=== PATIENT | female | born 1980 | race Asian ===

== ENCOUNTER → 2017-10-28 15:05 | Outpatient (CLI) | payer OTHER, SELFPAY ==
--- NOTE | 2017-10-28 15:08 | DI.RAD.S_ITS ---
PROCEDURE: XR FOOT LT MIN 3V INDICATIONS: Pain in left foot TECHNIQUE: 3 views of the foot were acquired. COMPARISON: None. FINDINGS: Bones: No fractures or dislocations. No suspicious bony lesions. There are minimal/early degenerative changes present involving the 1st metatarsophalangeal joint. There is a moderate-sized plantar calcaneal spur. Soft tissues: No tibiotalar joint effusion. The overlying soft tissues are within normal limits. IMPRESSION: 1. No acute fracture of the left foot is evident. 2. Mild degenerative changes of the 1st metatarsophalangeal joint. 3. Plantar calcaneal spur. Dictated by: Nilay Page M.D. on 10/28/2017 at 14:53 Approved by: Nilay Page M.D. on 10/28/2017 at 14:54
== END ==
PROVIDERS: Visit Provider Physician Assistant
DX: M79.672 Pain in left foot (principal); M19.072 Primary osteoarthritis, left ankle and foot; M77.32 Calcaneal spur, left foot
CPT/HCPCS: 73630

== ENCOUNTER 2018-04-17 17:55 | Emergency (ER) | payer OTHER, SELFPAY ==
[2018-04-17 19:38] VITALS: BP 107/69; PULSE 73; RESP 14; TEMP 37.6; O2SAT 98
[2018-04-17 20:25] LABS: Bacteria Urine None Seen; WBC Urine None Seen (0-5/HPF)
[2018-04-17 20:34] LABS: Culture Indicated Urine Cult Not Indicated; RBC Urine 1-5/HPF (0-5/HPF)
[2018-04-17 20:52] LABS: Prothrombin Time 11.7 SECONDS (10.1-12.7)
[2018-04-17 20:55] LABS: PTT Partial Thromboplastin Tim 33 SECONDS (26.4-36.2)
[2018-04-17 20:56] LABS: Add Manual Diff / Slide Review NO; Alanine Aminotransferase 19 IU/L (9-52); Albumin 4.5 g/dL (3.5-5.0); Albumin Globulin Ratio 1.3 (1.0-2.8); Alkaline Phosphatase 67 U/L (38-126); Aspartate Aminotransferase 16 IU/L (14-36); Basophils Absolute Auto 0 /uL (0-100); Basophils Percent Auto 0.4 % (0-2); Bilirubin Total 0.6 mg/dL (0.2-1.3); Blood Urea Nitrogen 8 mg/dL (7-17); Calcium 9.7 mg/dL (8.4-10.2); Carbon Dioxide 24 mmol/L (22-32); Chloride 100 mmol/L (98-107); Eosinophils Absolute Auto 200 /uL (0-450); Eosinophils Percent Auto 1.3 % (2-4); Estimated Glomerular Filt Rate > 60.0 mL/min (>60); Globulin 3.6 g/dL (1.7-4.1); Glucose 100 mg/dL (70-100); HEMOLYSIS < 15 (0-50); Hematocrit 37.7 % (36-46); Lipase 58 U/L (23-300); Lymphocytes Absolute Auto 1800 /uL (1100-4500); Lymphocytes Percent Auto 14.8 % (25-40); Mean Corpuscular HGB Conc 31.7 % (30-36); Mean Corpuscular Hemoglobin 21.1 PG (26-34); Mean Corpuscular Volume 66.5 fL (80-100); Monocytes Absolute Auto 800 /uL (0-900); Neutrophils Absolute Auto 9200 /uL (1500-7000); Neutrophils Percent Auto 76.5 % (50-75); Platelet Count 426 X10^3/uL (150-400); Potassium 3.6 mmol/L (3.4-5.1); Red Blood Cell Count 5.68 X10^6/uL (4.0-5.2); Red Cell Distribution Width 15.8 % (11.6-14.8); Sodium 137 mmol/L (137-145); Total Protein 8.1 g/dL (6.3-8.2); White Blood Cell Count 12.1 X10^3/uL (4.5-11.0)
--- NOTE | 2018-04-17 21:03 | DI.CT.S_ITS ---
PROCEDURE: CT ABDOMEN PELVIS W CON INDICATIONS: abd pain, elevated wbc TECHNIQUE: After the administration of intravenous contrast, 5 mm thick sections acquired from the diaphragm to the symphysis. 5 mm coronal and sagittal reformats were acquired. For radiation dose reduction, the following was used: automated exposure control, adjustment of mA and/or kV according to patient size. COMPARISON: [facility], CT, ABDOMEN/PELVIS WITH CONTRAST, 03/12/2016, 22:48. FINDINGS: Image quality: Excellent. ABDOMEN: Lung bases: Lung bases are clear. Heart size is normal. Solid organs: Liver is normal in size and enhancement. Subcentimeter hyper enhancing focus along the anterior left liver lobe, similar compared to prior. Gallbladder is partially decompressed, normal. Biliary system is non dilated. Pancreas enhances normally. Spleen is normal in size and enhancement. No adrenal nodules. Kidneys demonstrate normal size and enhancement, without hydronephrosis. Peritoneum and bowel: Focal inflammatory changes surrounding a short segment of mid right proximal colon. The wall demonstrates diffuse circumferential thickening. A prominent diverticulum is seen in this area. No extraluminal gas visible. The appendix, much more caudal, is normal. Small bowel loops demonstrate normal wall thickness and caliber. No free fluid or air. Nodes and vessels: No retroperitoneal or mesenteric adenopathy by size criteria. Aorta and inferior vena cava are normal in size. Miscellaneous: No ventral hernias. PELVIS: Genitourinary: Bladder wall thickness is normal. Uterus and ovaries appear normal. Miscellaneous: No inguinal hernias or adenopathy. A small amount of free pelvic fluid is present. Bones: No suspicious bony lesions. No vertebral body compression fractures. IMPRESSION: 1. Focal mid ascending colon inflammation suggestive of diverticulitis, less likely an infectious colitis. No evidence of perforation or abscess formation. 2. Small amount of free pelvic fluid is nonspecific and may be related to inflammatory process or recent ovarian cyst rupture. 3. Subcentimeter hyperenhancing left lobe liver lesion, likely benign (flash fill hemangioma, FNH, adenoma) given stability since the previous study Dictated by: Marilu Castellanos M.D. on 04/17/2018 at 21:55 Approved by: Marilu Castellanos M.D. on 04/17/2018 at 22:07
[2018-04-17] MEDS: methylPREDNISolone 125 MG/2 ML VIAL IV (21:12)
[2018-04-17] MEDS: SODIUM CHLORIDE 0.9% 1,000 ML 1000 ML IV (21:12)
[2018-04-17] MEDS: diphenhydrAMINE 50 MG/ML VIAL IV (21:12)
[2018-04-17] MEDS: ONDANSETRON 4 MG/2 ML INJ IV (21:12)
[2018-04-17 22:05] VITALS: BP 98/68; PULSE 67; RESP 16; O2SAT 100
--- NOTE | 2018-04-17 22:29 | ED.ABDPAIN ---
HPI - Abdominal Pain <JENNY Fitzpatrick-BC - Last Filed: 06/14/18 22:26> General Chief Complaint: Abdominal Pain Stated Complaint: tummy aches since yesterday Time Seen by Provider: 04/17/18 20:56 Source: patient and family Mode of arrival: ambulatory Limitations: no limitations History of Present Illness HPI narrative: Patient is a 37-year-old female Current smoker who presents with her with a chief complaint of abdominal pain that started yesterday. She denies any fevers. She states that the pain comes and goes. It is occasionally worse with eating. Does not radiate to chest. It is centered in upper abdomen. She states she does have a history of ovarian cyst, but this does not feel like that. She complains of fatigue, decreased appetite. She states that the pain was always in the center of her abdomen. She has any cough, congestion. She denies any vomiting or diarrhea. She denies any constipation. She denies any chest pain or shortness of breath. she denies any dysuria urgency or frequency. She denies any vaginal complaints. Related Data Previous Rx's Medication Instructions Recorded ciprofloxacin HCl [Cipro] 500 mg PO Q12H #20 tab 04/17/18 metronidazole 500 mg PO TID #30 tab 04/17/18 ondansetron 4 mg PO TID-QID PRN #30 tab 04/17/18 oxycodone-acetaminophen [Percocet] 1 tab PO Q4-6H PRN #14 tab 04/17/18 Allergies Allergy/AdvReac Type Severity Reaction Status Date / Time shellfish derived Allergy Severe itchy, Verified 04/17/18 19:42 hives Review of Systems <VERÓNICA Fitzpatrick - Last Filed: 06/14/18 22:26> Review of Systems GENERAL: see HPI HEENT: Denies sinus pain, ear pain, sore throat, difficulty swallowing, dizziness. RESPIRATORY: Denies dyspnea, cough, wheezing, hemoptysis, sputum. CARDIOVASCULAR: Denies chest pain, palpitations, orthopnea, edema, GASTROINTESTINAL: See HPI : Denies dysuria, frequency, incontinence, hematuria, urinary retention. MUSCULOSKELETAL: denies weakness, joint pain, or bony pain SKIN: Denies rash, skin lesions, or other NEUROLOGIC: Denies weakness, headache, numbness, change in speech, confusion, seizures, incoordination. PSYCHIATRIC: No concerning psychosocial issues. 12 point review of systems is negative except for those stated above PFSH <EDUARDO Fitzpatrick - Last Filed: 06/14/18 22:26> Social History Smoking Status: Current every day smoker Social History Smoking Status: Current every day smoker Exam <EDUARDO Fitzpatrick - Last Filed: 06/14/18 22:26> Initial Vital Signs Initial Vital Signs: Vital Signs Temperature 99.7 F H 04/17/18 19:38 Pulse Rate 73 04/17/18 19:38 Respiratory Rate 14 04/17/18 19:38 Blood Pressure 107/69 04/17/18 19:38 Pulse Oximetry 98 04/17/18 19:38 <Donal Sanchez MD - Last Filed: 06/15/18 01:59> Initial Vital Signs Initial Vital Signs: Vital Signs Temperature 99.7 F H 04/17/18 19:38 Pulse Rate 73 04/17/18 19:38 Respiratory Rate 14 04/17/18 19:38 Blood Pressure 107/69 04/17/18 19:38 Pulse Oximetry 98 04/17/18 19:38 Course <EDUARDO Fitzpatrick - Last Filed: 06/14/18 22:26> Course Narrative: I checked on the patient several times throughout her stay in the emergency department Orders Ordered: Discontinued Medications Ciprofloxacin (Cipro) 500 mg PO NOW ONE Stop: 04/17/18 22:27 Last Admin: 04/17/18 22:45 Dose: 500 mg Diphenhydramine HCl (Benadryl) 50 mg IV NOW ONE Stop: 04/17/18 21:05 Last Admin: 04/17/18 21:12 Dose: 50 mg Sodium Chloride (Normal Saline 0.9%) 1,000 mls @ 1,000 mls/hr IV BOLUS ONE Stop: 04/17/18 21:26 Last Infusion: 04/17/18 22:50 Dose: 0 mls/hr Admin: 04/17/18 21:12 Dose: 1,000 mls/hr Sodium Chloride (Normal Saline 0.9%) 1,000 mls @ 1,000 mls/hr IV BOLUS ONE Stop: 04/17/18 22:02 Last Admin: 04/17/18 23:13 Dose: Not Given Methylprednisolone (Solu-Medrol 125 Mg Vial) 125 mg IV NOW ONE Stop: 04/17/18 21:05 Last Admin: 04/17/18 21:12 Dose: 125 mg Metronidazole (Metronidazole) 500 mg PO NOW ONE Stop: 04/17/18 22:27 Last Admin: 04/17/18 22:45 Dose: 500 mg Ondansetron HCl (Zofran) 4 mg IV NOW ONE Stop: 04/17/18 20:27 Last Admin: 04/17/18 21:12 Dose: 4 mg Ondansetron HCl (Zofran Odt Prepack) 1 bottle MISC SEEINSTR ONE Stop: 04/17/18 22:27 Last Admin: 04/17/18 22:45 Dose: 1 bottle Oxycodone/Acetaminophen (Endocet 5/325 [place]ack) 1 bottle MISC SEEINSTR ONE Stop: 04/17/18 22:27 Last Admin: 04/17/18 22:45 Dose: 1 bottle Vital Signs - 8 hr 04/17/18 19:38 04/17/18 22:05 Temperature 99.7 F H Pulse Rate 73 67 Respiratory Rate 14 16 Blood Pressure 107/69 Blood Pressure [Right Arm] 98/68 Pulse Oximetry 98 100 <Donal Sanchez MD - Last Filed: 06/15/18 01:59> Orders Ordered: Discontinued Medications Ciprofloxacin (Cipro) 500 mg PO NOW ONE Stop: 04/17/18 22:27 Last Admin: 04/17/18 22:45 Dose: 500 mg Diphenhydramine HCl (Benadryl) 50 mg IV NOW ONE Stop: 04/17/18 21:05 Last Admin: 04/17/18 21:12 Dose: 50 mg Sodium Chloride (Normal Saline 0.9%) 1,000 mls @ 1,000 mls/hr IV BOLUS ONE Stop: 04/17/18 21:26 Last Infusion: 04/17/18 22:50 Dose: 0 mls/hr Admin: 04/17/18 21:12 Dose: 1,000 mls/hr Sodium Chloride (Normal Saline 0.9%) 1,000 mls @ 1,000 mls/hr IV BOLUS ONE Stop: 04/17/18 22:02 Last Admin: 04/17/18 23:13 Dose: Not Given Methylprednisolone (Solu-Medrol 125 Mg Vial) 125 mg IV NOW ONE Stop: 04/17/18 21:05 Last Admin: 04/17/18 21:12 Dose: 125 mg Metronidazole (Metronidazole) 500 mg PO NOW ONE Stop: 04/17/18 22:27 Last Admin: 04/17/18 22:45 Dose: 500 mg Ondansetron HCl (Zofran) 4 mg IV NOW ONE Stop: 04/17/18 20:27 Last Admin: 04/17/18 21:12 Dose: 4 mg Ondansetron HCl (Zofran Odt Prepack) 1 bottle MISC SEEINSTR ONE Stop: 04/17/18 22:27 Last Admin: 04/17/18 22:45 Dose: 1 bottle Oxycodone/Acetaminophen (Endocet 5/325 Prepack) 1 bottle MISC SEEINSTR ONE Stop: 04/17/18 22:27 Last Admin: 04/17/18 22:45 Dose: 1 bottle Vital Signs - 8 hr 04/17/18 19:38 04/17/18 22:05 Temperature 99.7 F H Pulse Rate 73 67 Respiratory Rate 14 16 Blood Pressure 107/69 Blood Pressure [Right Arm] 98/68 Pulse Oximetry 98 100 MDM - Abdominal Pain <JENNY Fitzpatrick- - Last Filed: 06/14/18 22:26> Lab Data Result diagrams: 04/17/18 20:35 04/17/18 20:35 Lab Results 04/17/18 04/17/18 04/17/18 Range/Units 20:04 20:35 20:35 WBC 12.1 H (4.5-11.0) X10^3/uL RBC 5.68 H (4.0-5.2) X10^6/uL Hgb 12.0 (12.0-16.0) g/dL Hct 37.7 (36-46) % MCV 66.5 L (80-100) fL MCH 21.1 L (26-34) PG MCHC 31.7 (30-36) % RDW 15.8 H (11.6-14.8) % Plt Count 426 H (150-400) X10^3/uL Neut % (Auto) 76.5 H (50-75) % Lymph % (Auto) 14.8 L (25-40) % [place] % (Auto) 7.0 (3-14) % Eos % (Auto) 1.3 L (2-4) % Baso % (Auto) 0.4 (0-2) % Neut # (Auto) 9200 H (0393-3774) /uL Lymph # (Auto) 1800 (6028-3339) /uL [place] # (Auto) 800 (0-900) /uL Eos # (Auto) 200 (0-450) /uL Baso # (Auto) 0 (0-100) /uL RBC Morphology See below Anisocytosis 2+ H Microcytosis 1+ H PT 11.7 (10.1-12.7) SECONDS INR 1.0 (0.9-1.3) APTT 33 (26.4-36.2) SECONDS Sodium (137-145) mmol/L Potassium (3.4-5.1) mmol/L Chloride (98-107) mmol/L Carbon Dioxide (22-32) mmol/L BUN (7-17) mg/dL Creatinine (0.52-1.04) mg/dL Estimated GFR (>60) mL/min BUN/Creatinine Ratio (6-22) Glucose (70-100) mg/dL Calcium (8.4-10.2) mg/dL Total Bilirubin (0.2-1.3) mg/dL AST (14-36) IU/L ALT (9-52) IU/L Alkaline Phosphatase (38-126) U/L Total Protein (6.3-8.2) g/dL Albumin (3.5-5.0) g/dL Globulin (1.7-4.1) g/dL Albumin/Globulin Ratio (1.0-2.8) Lipase (23-300) U/L Urine RBC 1-5/hpf (0-5/HPF) Urine WBC None seen (0-5/HPF) Urine Bacteria None seen (None) Ur Culture Indicated? Cult not indicated 04/17/18 Range/Units 20:35 WBC (4.5-11.0) X10^3/uL RBC (4.0-5.2) X10^6/uL Hgb (12.0-16.0) g/dL Hct (36-46) % MCV (80-100) fL MCH (26-34) PG MCHC (30-36) % RDW (11.6-14.8) % Plt Count (150-400) X10^3/uL Neut % (Auto) (50-75) % Lymph % (Auto) (25-40) % [place] % (Auto) (3-14) % Eos % (Auto) (2-4) % Baso % (Auto) (0-2) % Neut # (Auto) (1740-7732) /uL Lymph # (Auto) (6314-9871) /uL [place] # (Auto) (0-900) /uL Eos # (Auto) (0-450) /uL Baso # (Auto) (0-100) /uL RBC Morphology Anisocytosis Microcytosis PT (10.1-12.7) SECONDS INR (0.9-1.3) APTT (26.4-36.2) SECONDS Sodium 137 (137-145) mmol/L Potassium 3.6 (3.4-5.1) mmol/L Chloride 100 (98-107) mmol/L Carbon Dioxide 24 (22-32) mmol/L BUN 8 (7-17) mg/dL Creatinine 0.50 L (0.52-1.04) mg/dL Estimated GFR > 60.0 (>60) mL/min BUN/Creatinine Ratio 16.0 (6-22) Glucose 100 (70-100) mg/dL Calcium 9.7 (8.4-10.2) mg/dL Total Bilirubin 0.6 (0.2-1.3) mg/dL AST 16 (14-36) IU/L ALT 19 (9-52) IU/L Alkaline Phosphatase 67 (38-126) U/L Total Protein 8.1 (6.3-8.2) g/dL Albumin 4.5 (3.5-5.0) g/dL Globulin 3.6 (1.7-4.1) g/dL Albumin/Globulin Ratio 1.3 (1.0-2.8) Lipase 58 (23-300) U/L Urine RBC (0-5/HPF) Urine WBC (0-5/HPF) Urine Bacteria (None) Ur Culture Indicated? Point of care testing: Point of Care Testing Test Results Negative Urine Dip Bedside Urine Glucose Negative Bedside Urine Bilirubin - Negative Bedside Urine Ketone +/- 5 Urine Specific [place] 1.030 Bedside Urine Occult Blood + Bedside Urine pH 6.0 Bedside Urine Protein +/- 15 Bedside Urine Nitrite - Negative Bedside Urine Leukocytes - Negative Esterase Imaging Data CT scan - abdomen: Radiologist's impression: [address] [address] [address] Scan Report Signed Patient: Jonathan Mcallister SMR#: [id number] : 1980Acct:[id number] Age/Sex: 37 / FDate of Service: 04/17/18 Loc: ED Accession Number: [id number] Procedure: CT abdomen pelvis w con Ordering Provider: Jany Farley-BC PROCEDURE: CT ABDOMEN PELVIS W CON INDICATIONS: abd pain, elevated wbc TECHNIQUE: After the administration of intravenous contrast, 5 mm thick sections acquired from the diaphragm to the symphysis. 5 mm coronal and sagittal reformats were acquired. For radiation dose reduction, the following was used: automated exposure control, adjustment of mA and/or kV according to patient size. COMPARISON: [facility], CT, ABDOMEN/PELVIS WITH CONTRAST, 03/12/2016, 22:48. FINDINGS: Image quality: Excellent. ABDOMEN: Lung bases: Lung bases are clear. Heart size is normal. Solid organs: Liver is normal in size and enhancement. Subcentimeter hyper enhancing focus along the anterior left liver lobe, similar compared to prior. Gallbladder is partially decompressed, normal. Biliary system is non dilated. Pancreas enhances normally. Spleen is normal in size and enhancement. No adrenal nodules. Kidneys demonstrate normal size and enhancement, without hydronephrosis. Peritoneum and bowel: Focal inflammatory changes surrounding a short segment of mid right proximal colon. The wall demonstrates diffuse circumferential thickening. A prominent diverticulum is seen in this area. No extraluminal gas visible. The appendix, much more caudal, is normal. Small bowel loops demonstrate normal wall thickness and caliber. No free fluid or air. Nodes and vessels: No retroperitoneal or mesenteric adenopathy by size criteria. Aorta and inferior vena cava are normal in size. Miscellaneous: No ventral hernias. PELVIS: Genitourinary: Bladder wall thickness is normal. Uterus and ovaries appear normal. Miscellaneous: No inguinal hernias or adenopathy. A small amount of free pelvic fluid is present. Bones: No suspicious bony lesions. No vertebral body compression fractures. IMPRESSION: 1. Focal mid ascending colon inflammation suggestive of diverticulitis, less likely an infectious colitis. No evidence of perforation or abscess formation. 2. Small amount of free pelvic fluid is nonspecific and may be related to inflammatory process or recent ovarian cyst rupture. 3. Subcentimeter hyperenhancing left lobe liver lesion, likely benign (flash fill hemangioma, FNH, adenoma) given stability since the previous study Dictated by: Marilu Castellanos M.D. on 04/17/2018 at 21:55 Approved by: Marilu Castellanos M.D. on 04/17/2018 at 22:07 [facility] Narrative Medical decision making narrative: The patient is a 37-year-old female presents with low-grade fevers, abdominal pain. Given her tenderness on exam elevated temperature, elevated WBC I obtained a CT scan. Diverticulitis was noted on CT scan. The 7 initiating treatment with Flagyl and Cipro as per up-to-date guidelines. I am giving her Percocet for pain, Zofran for nausea, discussed at length clear liquid diet, pushing fluids, eating simple foods. Patient has been of no questions or concerns. I encouraged her to follow up with primary care provider in a few days. Patient states understanding of ED return precautions. <Donal Sanchez MD - Last Filed: 06/15/18 01:59> Lab Data Lab Results 04/17/18 04/17/18 04/17/18 Range/Units 20:04 20:35 20:35 WBC 12.1 H (4.5-11.0) X10^3/uL RBC 5.68 H (4.0-5.2) X10^6/uL Hgb 12.0 (12.0-16.0) g/dL Hct 37.7 (36-46) % MCV 66.5 L (80-100) fL MCH 21.1 L (26-34) PG MCHC 31.7 (30-36) % RDW 15.8 H (11.6-14.8) % Plt Count 426 H (150-400) X10^3/uL Neut % (Auto) 76.5 H (50-75) % Lymph % (Auto) 14.8 L (25-40) % [place] % (Auto) 7.0 (3-14) % Eos % (Auto) 1.3 L (2-4) % Baso % (Auto) 0.4 (0-2) % Neut # (Auto) 9200 H (9345-2097) /uL Lymph # (Auto) 1800 (1806-3371) /uL [place] # (Auto) 800 (0-900) /uL Eos # (Auto) 200 (0-450) /uL Baso # (Auto) 0 (0-100) /uL RBC Morphology See below Anisocytosis 2+ H Microcytosis 1+ H PT 11.7 (10.1-12.7) SECONDS INR 1.0 (0.9-1.3) APTT 33 (26.4-36.2) SECONDS Sodium (137-145) mmol/L Potassium (3.4-5.1) mmol/L Chloride (98-107) mmol/L Carbon Dioxide (22-32) mmol/L BUN (7-17) mg/dL Creatinine (0.52-1.04) mg/dL Estimated GFR (>60) mL/min BUN/Creatinine Ratio (6-22) Glucose (70-100) mg/dL Calcium (8.4-10.2) mg/dL Total Bilirubin (0.2-1.3) mg/dL AST (14-36) IU/L ALT (9-52) IU/L Alkaline Phosphatase (38-126) U/L Total Protein (6.3-8.2) g/dL Albumin (3.5-5.0) g/dL Globulin (1.7-4.1) g/dL Albumin/Globulin Ratio (1.0-2.8) Lipase (23-300) U/L Urine RBC 1-5/hpf (0-5/HPF) Urine WBC None seen (0-5/HPF) Urine Bacteria None seen (None) Ur Culture Indicated? Cult not indicated 04/17/18 Range/Units 20:35 WBC (4.5-11.0) X10^3/uL RBC (4.0-5.2) X10^6/uL Hgb (12.0-16.0) g/dL Hct (36-46) % MCV (80-100) fL MCH (26-34) PG MCHC (30-36) % RDW (11.6-14.8) % Plt Count (150-400) X10^3/uL Neut % (Auto) (50-75) % Lymph % (Auto) (25-40) % [place] % (Auto) (3-14) % Eos % (Auto) (2-4) % Baso % (Auto) (0-2) % Neut # (Auto) (9924-9309) /uL Lymph # (Auto) (4193-4210) /uL [place] # (Auto) (0-900) /uL Eos # (Auto) (0-450) /uL Baso # (Auto) (0-100) /uL RBC Morphology Anisocytosis Microcytosis PT (10.1-12.7) SECONDS INR (0.9-1.3) APTT (26.4-36.2) SECONDS Sodium 137 (137-145) mmol/L Potassium 3.6 (3.4-5.1) mmol/L Chloride 100 (98-107) mmol/L Carbon Dioxide 24 (22-32) mmol/L BUN 8 (7-17) mg/dL Creatinine 0.50 L (0.52-1.04) mg/dL Estimated GFR > 60.0 (>60) mL/min BUN/Creatinine Ratio 16.0 (6-22) Glucose 100 (70-100) mg/dL Calcium 9.7 (8.4-10.2) mg/dL Total Bilirubin 0.6 (0.2-1.3) mg/dL AST 16 (14-36) IU/L ALT 19 (9-52) IU/L Alkaline Phosphatase 67 (38-126) U/L Total Protein 8.1 (6.3-8.2) g/dL Albumin 4.5 (3.5-5.0) g/dL Globulin 3.6 (1.7-4.1) g/dL Albumin/Globulin Ratio 1.3 (1.0-2.8) Lipase 58 (23-300) U/L Urine RBC (0-5/HPF) Urine WBC (0-5/HPF) Urine Bacteria (None) Ur Culture Indicated? Point of care testing: Point of Care Testing Test Results Negative Urine Dip Bedside Urine Glucose Negative Bedside Urine Bilirubin - Negative Bedside Urine Ketone +/- 5 Urine Specific [place] 1.030 Bedside Urine Occult Blood + Bedside Urine pH 6.0 Bedside Urine Protein +/- 15 Bedside Urine Nitrite - Negative Bedside Urine Leukocytes - Negative Esterase Discharge Plan Departure Patient Disposition: Home Clinical Impression: Diverticulitis Discharge Date/Time: 04/17/18 23:10 Interventions: ED Discharge Assessment Last Done: 04/17/18 23:13 Instructions: DI for Diverticulitis Activity Restrictions/Additional Instructions: I am starting you on 2 different antibiotics for your diverticulitis infection. I am also giving him pain medication and nausea medication. The aware that the pain medication can be sedating. I can also be constipating. Please push fluids and initially try clear liquid diet. please follow the dietary guidelines that we have given you. Come back to the emergency department if needed including inability to keep down her medications. Please follow up with her primary care provider in a few days for recheck. Prescriptions: New ciprofloxacin HCl [Cipro] 500 mg tablet 500 mg PO Q12H Qty: 20 RF: 0 metronidazole 500 mg tablet 500 mg PO TID Qty: 30 RF: 0 ondansetron 4 mg tablet,disintegrating 4 mg PO TID-QID PRN (Reason: nausea and vomiting) Qty: 30 RF: 0 oxycodone-acetaminophen [Percocet] 5-325 mg tablet 1 tab PO Q4-6H PRN (Reason: pain) Qty: 14 RF: 0 Referrals: Charlie Hills MD [Non-Staff] - <Donal Sanchez MD - Last Filed: 06/15/18 01:59> Sign Out Provider Sign Out Attestation: I have discussed the patient's evaluation, assessment and treatment plan with the primary provider. Addendum has been added documenting the exam. I agree with the assessment and treatment plan.
[2018-04-17 22:45] VITALS: BP 89/61; PULSE 68; RESP 16; O2SAT 98
[2018-04-17] MEDS: ONDANSETRON 4 MG ODT PREPACK 1 BOTTLE MISC (22:45)
[2018-04-17] MEDS: OXYCODONE/APAP 5/325 PREPACK 1 BOTTLE MISC (22:45)
[2018-04-17] MEDS: CIPROFLOXACIN 500 MG TABLET PO (22:45)
[2018-04-17] MEDS: metroNIDAZOLE 250 MG TABLET 500 MG PO (22:45)
[2018-04-17 23:13] VITALS: BP 103/67; PULSE 61
[2018-04-18 01:27] LABS: Anisocytosis 2+; Microcytosis 1+
== END 2018-04-17 23:10 | disposition home or self-care (01) ==
PROVIDERS: Emergency Medicine; Emergency Provider Nurse Practitioner Family
DX: K57.92 Diverticulitis of intestine, part unspecified, without perforation or abscess without bleeding (principal)
CPT/HCPCS: 36591; 74177; 80053; 81003; 81015; 81025; 83690; 85025; 85610; 85730; 96361; 96374; 96375; 99283; 99285; J1200; J2405; J2930; Q9967

== ENCOUNTER 2023-03-05 10:25 | Emergency (ER) | payer OTHER, SELFPAY ==
[2023-03-05 10:28] VITALS: BP 141/65; PULSE 79; RESP 15; TEMP 36.4; O2SAT 97; BMI 29.2
--- NOTE | 2023-03-05 10:45 | ED.GENADULT ---
HPI - General Adult General Chief complaint: Abdominal Pain Stated complaint: side hurting constipation Time Seen by Provider: 03/05/23 10:41 Source: patient Mode of arrival: Ambulatory History of Present Illness HPI narrative: Patient is a 42-year-old male. History of diverticulitis. She states that several days ago she started to get UTI like symptoms. She did take a home azo. She went to an outside walk-in clinic. Because her urine was discolored they were unable to do any urine samples. She was presumptively started on Macrobid. She has been taking this. She feels like her urine symptoms have actually improved however she continues to have left-sided abdominal and flank pain. No fevers. No vomiting. She did have a very hard bowel movement this morning. No blood in it. She states that the left-sided flank pain is starting to feel like her prior history of diverticulitis. Related Data Previous Rx's Medication Instructions Recorded ciprofloxacin HCl 500 mg tablet 500 mg PO Q12H #20 tabs 04/17/18 (Cipro) metronidazole 500 mg tablet 500 mg PO TID #30 tabs 04/17/18 ondansetron 4 mg disintegrating 4 mg PO TID-QID PRN nausea and 04/17/18 tablet vomiting #30 tabs oxycodone-acetaminophen 5 mg-325 1 tab PO Q4-6H PRN pain #14 tabs 04/17/18 mg tablet (Percocet) Allergies Allergy/AdvReac Type Severity Reaction Status Date / Time shellfish derived Allergy Severe itchy, Verified 03/05/23 10:28 hives Review of Systems Constitutional Constitutional: Reports system reviewed and no additional complaints, except as documented Gastrointestinal Gastrointestinal: Reports system reviewed and no additional complaints, except as documented Genitourinary Genitourinary: Reports system reviewed and no additional complaints, except as documented Musculoskeletal Musculoskeletal: Reports system reviewed and no additional complaints, except as documented Integumentary/Breasts Skin/Breast: Reports system reviewed and no additional complaints, except as documented Hematologic/Lymphatic On Anticoagulants: No Patient History Social History Smoking Status: Former smoker Smoking Status: Former smoker alcohol intake frequency: holidays/special occasions only Substance Use Type: does not use Exam Initial Vital Signs Initial Vital Signs: Vital Signs Temperature 97.6 F 03/05/23 10:28 Pulse Rate 79 03/05/23 10:28 Respiratory Rate 15 03/05/23 10:28 Blood Pressure 141/65 H 03/05/23 10:28 Pulse Oximetry 97 03/05/23 10:28 Oxygen Delivery Method Room Air 03/05/23 10:28 Const General: cooperative, comfortable and No ill appearing HENMT Head: normal to inspection Resp Effort & Inspection: normal respiratory effort GI Inspection: normal to inspection and non-distended Palpation: tender (Mild tenderness left-sided flank/abdomen) Back/Spine/Pelvis Back: No CVA tenderness Other: Left-sided lower lumbar discomfort Neuro General: patient alert, patient awake and moves all extremities Extrem General: normal to inspection and capillary refill normal Course Orders Ordered: ED Orders 03/05/23 10:44 CT abdomen pelvis w con Stat 03/05/23 10:46 Urinalysis and Microscopic Stat 03/05/23 10:53 Complete Blood Count AUTO DIFF Stat Comprehensive Metabolic Panel Stat Lipase Stat Ondansetron HCl (Ondansetron 4 Mg/2 Ml Inj) 4 mg IV NOW PRN PRN Reason: Nausea And Vomiting Last Admin: 03/05/23 10:56 Dose: 4 mg Documented By: MARCIA Discontinued Medications Diphenhydramine HCl (Diphenhydramine 50 Mg/Ml Vial) 25 mg IV NOW ONE Stop: 03/05/23 10:45 Last Admin: 03/05/23 10:56 Dose: 25 mg Documented By: MARCIA Methylprednisolone (Methylprednisolone 125 Mg/2 Ml Vial) 125 mg IV NOW ONE Stop: 03/05/23 10:45 Last Admin: 03/05/23 10:55 Dose: 125 mg Documented By: MARCIA Vital Signs Vital signs: Vital Signs - 8 hr 03/05/23 10:28 03/05/23 12:22 Temperature 97.6 F Pulse Rate 79 68 Respiratory Rate 15 16 Blood Pressure 141/65 H 105/63 Pulse Oximetry 97 96 Oxygen Delivery Method Room Air Room Air Medical Decision Making Lab Data Lab results reviewed: Yes I reviewed the patient's lab results. 03/05/23 10:53 03/05/23 10:53 Labs: Lab Results 03/05/23 03/05/23 Range/Units 10:46 10:53 WBC 7.5 (4.5-11.0) X10^3/uL RBC 5.93 H (4.0-5.2) X10^6/uL Hgb 12.4 (12.0-16.0) g/dL Hct 38.6 (36-46) % MCV 65.2 L (80-100) fL MCH 21.0 L (26-34) PG MCHC 32.2 (30-36) % RDW 15.4 H (11.6-14.8) % Plt Count 418 H (150-400) X10^3/uL Neut % (Auto) 62.5 (50-75) % Lymph % (Auto) 27.8 (25-40) % Mercer % (Auto) 6.6 (3-14) % Eos % (Auto) 2.3 (2-4) % Baso % (Auto) 0.8 (0-2) % Neut # (Auto) 4700 (1274-6642) /uL Lymph # (Auto) 2100 (5704-1843) /uL Mercer # (Auto) 500 (0-900) /uL Eos # (Auto) 200 (0-450) /uL Baso # (Auto) 100 (0-100) /uL Sodium 136 L (137-145) mmol/L Potassium 3.8 (3.4-5.1) mmol/L Chloride 99 (98-107) mmol/L Carbon Dioxide 25 (22-32) mmol/L BUN 8 (7-17) mg/dL Creatinine 0.39 L (0.52-1.04) mg/dL Estimated GFR > 60 (>60) mL/min BUN/Creatinine Ratio 20.5 (6-22) Glucose 201 H (70-100) mg/dL Calcium 9.5 (8.4-10.2) mg/dL Total Bilirubin 0.4 (0.2-1.3) mg/dL AST TNP ALT 33 (<35) IU/L Alkaline Phosphatase 84 (38-126) U/L Total Protein 8.2 (6.3-8.2) g/dL Albumin 4.3 (3.5-5.0) g/dL Globulin 3.9 (1.7-4.1) g/dL Albumin/Globulin Ratio 1.1 (1.0-2.8) Lipase 84 (23-300) U/L Urine Color Yellow Urine Appearance Clear Urine pH 5.5 (4.5-8.0) Ur Specific [place] 1.010 (1.000-1.035) Urine Protein Negative (Negative) Urine Glucose (UA) 1+ H (Negative) g/dL Urine Ketones 1+ H (NEGATIVE) Urine Occult Blood Negative (Negative) Urine Nitrate Negative (Negative) Urine Bilirubin Negative (NEGATIVE) Urine Urobilinogen 0.2 (0.2) E.U./dL Ur Leukocyte Esterase Negative (NEGATIVE) Urine RBC None seen (0-5/HPF) Urine WBC 1-5/hpf (0-5/HPF) Ur Squamous Epith Cells 10-30 /hpf H (0-5/HPF) Urine Bacteria Moderate (10-30) H (None) Ur Culture Indicated? Cult not indicated Point of Care Testing Test Results Negative Point of care testing: Point of Care Testing Test Results Negative Imaging Data CT scan - abdomen/pelvis: Radiologist's Impression: PROCEDURE: CT ABDOMEN PELVIS W CON INDICATIONS: Left-sided flank pain TECHNIQUE: After the administration of intravenous contrast, axial sections acquired from the lung bases to the pubic symphysis. Coronal and sagittal reformats were performed. For radiation dose reduction, the following was used: automated exposure control, adjustment of mA and/or kV according to patient size. COMPARISON: [facility], CT, CT ABDOMEN PELVIS W CON, 04/17/2018, 21:22. FINDINGS: Image quality: Diagnostic. Lower Chest: No significant findings. ABDOMEN: Liver: Prominent in size with diffusely decreased density. No focal mass. Gallbladder: No radiopaque gallstones or wall thickening. Biliary ducts: No biliary dilation. Pancreas: No ductal dilation. Spleen: Size is within normal limits. Adrenal Glands: No adrenal nodules. Kidneys and Ureters: No hydronephrosis. No solid mass. No complex renal cystic lesion which requires follow up. Stomach and Bowel: Normal colonic caliber, without significant wall thickening. Normal appendix. Peritoneum: Small amount of free fluid in the pelvis, within physiological limits in a menstruating female. No free air. Ventral Wall: No hernia. Abdominal Nodes: No retroperitoneal or mesenteric adenopathy by size criteria. Vessels: Aorta and inferior vena cava are normal in size. PELVIS: Pelvic Organs: Unremarkable. Bladder: Unremarkable. Pelvic Nodes: No enlarged lymph nodes. Miscellaneous: No inguinal hernias are seen. Bones: No aggressive osseous abnormality. IMPRESSION: 1. No acute process. 2. Normal appendix. 3. Small amount of free fluid in the pelvis, within physiological limits in a menstruating female. 4. Hepatic steatosis. MDM Narrative Medical decision making narrative: CT scan today is relatively unremarkable. There was no signs of any ureteral stone. No inflammation around the kidney that would be concerning for pyelo. She actually does not have CVA tenderness. No signs of diverticulitis. No signs of bowel obstruction. She is currently being treated for UTI. There was no indication to change her current antibiotic regimen. No indication for surgical consultation. No indication for admission to the hospital. Will discharge patient home with return precautions. She expressed understanding and agreement with plan. Discharge Plan Departure Patient Disposition: Home Clinical Impression: UTI (urinary tract infection), Abdominal pain Instructions: DI for Urinary Tract Infection (UTI), DI for Abdominal Pain-Adult Activity Restrictions/Additional Instructions: Recommend that you continue to take all of your medications as directed. Contact your primary doctor for follow-up. Return to the emergency department for new symptoms. Prescriptions: No Action ciprofloxacin HCl [Cipro] 500 mg tablet 500 mg PO Q12H Qty: 20 0RF metronidazole 500 mg tablet 500 mg PO TID Qty: 30 0RF ondansetron 4 mg tablet,disintegrating 4 mg PO TID-QID PRN (Reason: nausea and vomiting) Qty: 30 0RF oxycodone-acetaminophen [Percocet] 5-325 mg tablet 1 tab PO Q4-6H PRN (Reason: pain) Qty: 14 0RF Referrals: Miscellaneous,Doctor, MD [Primary Care Provider] - Stand Alone Forms: Patient Portal/API
[2023-03-05 10:49] LABS: Appearance Urine UA CLEAR; Bilirubin Urine UA NEGATIVE (NEGATIVE); Color Urine UA YELLOW; Glucose Urine UA 1+ g/dL (Negative); Ketones Urine UA 1+ (NEGATIVE); Leukocyte Esterase Urine UA NEGATIVE (NEGATIVE); Nitrite Urine UA NEGATIVE (Negative); Occult Blood Urine UA NEGATIVE (Negative); Protein Urine UA NEGATIVE (Negative); Urobilinogen Urine UA 0.2 E.U./dL (0.2)
[2023-03-05 10:54] LABS: pH Urine UA 5.5 (4.5-8.0)
[2023-03-05] MEDS: methylPREDNISolone 125 MG/2 ML VIAL IV (10:55)
[2023-03-05] MEDS: ONDANSETRON 4 MG/2 ML INJ IV (10:56)
[2023-03-05] MEDS: diphenhydrAMINE 50 MG/ML VIAL 25 MG IV (10:56)
[2023-03-05 11:10] LABS: Bacteria Urine Moderate (10-30); Culture Indicated Urine Cult Not Indicated; RBC Urine None Seen (0-5/HPF); Squamous Epithelial Cell Urine 10-30 /HPF (0-5/HPF); WBC Urine 1-5/HPF (0-5/HPF)
[2023-03-05 11:14] LABS: Basophils Absolute Auto 100 /uL (0-100); Basophils Percent Auto 0.8 % (0-2); Eosinophils Absolute Auto 200 /uL (0-450); Eosinophils Percent Auto 2.3 % (2-4); Hematocrit 38.6 % (36-46); Hemoglobin 12.4 g/dL (12.0-16.0); Lymphocytes Absolute Auto 2100 /uL (1100-4500); Lymphocytes Percent Auto 27.8 % (25-40); Mean Corpuscular HGB Conc 32.2 % (30-36); Mean Corpuscular Volume 65.2 fL (80-100); Monocytes Absolute Auto 500 /uL (0-900); Monocytes Percent Auto 6.6 % (3-14); Neutrophils Absolute Auto 4700 /uL (1500-7000); Neutrophils Percent Auto 62.5 % (50-75); Platelet Count 418 X10^3/uL (150-400); Red Blood Cell Count 5.93 X10^6/uL (4.0-5.2); Red Cell Distribution Width 15.4 % (11.6-14.8); White Blood Cell Count 7.5 X10^3/uL (4.5-11.0)
[2023-03-05 11:15] LABS: Add Manual Diff / Slide Review SLIDE REVIEW
[2023-03-05 11:31] LABS: Alanine Aminotransferase 33 IU/L (<35); Albumin 4.3 g/dL (3.5-5.0); Albumin Globulin Ratio 1.1 (1.0-2.8); Alkaline Phosphatase 84 U/L (38-126); BUN Creatinine Ratio 20.5 (6-22); Bilirubin Total 0.4 mg/dL (0.2-1.3); Blood Urea Nitrogen 8 mg/dL (7-17); Calcium 9.5 mg/dL (8.4-10.2); Carbon Dioxide 25 mmol/L (22-32); Chloride 99 mmol/L (98-107); Estimated Glomerular Filt Rate > 60 mL/min (>60); Globulin 3.9 g/dL (1.7-4.1); Glucose 201 mg/dL (70-100); HEMOLYSIS < 15 (0-50); Lipase 84 U/L (23-300); Potassium 3.8 mmol/L (3.4-5.1); Sodium 136 mmol/L (137-145); Total Protein 8.2 g/dL (6.3-8.2)
[2023-03-05 12:22] VITALS: BP 105/63; PULSE 68; RESP 16; O2SAT 96
[2023-03-05 15:16] LABS: Anisocytosis 1+; Microcytosis 1+
[2023-03-06 14:58] LABS: Aspartate Aminotransferase 35 IU/L (14-36)
== END 2023-03-05 12:48 | disposition home or self-care (01) ==
PROVIDERS: Emergency Provider Emergency Medicine
DX: N39.0 Urinary tract infection, site not specified (principal); R10.9 Unspecified abdominal pain
CPT/HCPCS: 36415; 74177; 80053; 81001; 81025; 83690; 85025; 96374; 96375; 99284; J1200; J2405; J2930; Q9967

== ENCOUNTER 2023-11-23 09:47 | Emergency (ER) | payer OTHER, SELFPAY ==
[2023-11-23 09:51] VITALS: BP 149/87; PULSE 701; RESP 18; TEMP 36.3; O2SAT 98; BMI 29.6
--- NOTE | 2023-11-23 11:24 | ED.EAR ---
HPI - Ear Problem <Braxton Hobbs PA-C - Last Filed: 11/23/23 12:32> General Chief complaint: Ear Stated complaint: Left Ear infection Time Seen by Provider: 11/23/23 11:11 Source: patient Mode of arrival: Ambulatory History of Present Illness HPI Narrative: 43-year-old female presents to the ED with 7 days of left-sided headache and ear pain. Patient states her symptoms started 7 days ago as a left-sided migraine, the next day progressed to left-sided ear pain which she describes as behind her left ear, 2-3 inches posterior to the mastoid. Patient states that she was seen at the [facility] walk-in clinic, prescribed Augmentin and antibiotic eardrops for a left-sided ear infection. Patient states that her symptoms have not improved despite taking her medications as prescribed. Today, patient endorses 7/10 left-sided neck pain. Patient states that it is sometimes sharp, and comes and goes. Patient states that she does feel somewhat stiff when she turns her neck to the left. No trauma. Patient states that her headache has been intermittent over this last week. Patient does not report a headache in the ED. patient does endorse a history of migraines. Patient states that her headaches in the last week are similar to the headaches that she has historically experienced. Patient reports subjective intermittent fever 4 days ago and yesterday. No rhinorrhea, cough, sore throat, nausea, vomiting. No dysphagia, odynophagia. No hearing deficits. No numbness, tingling, weakness, dizziness. Patient was also screened for COVID at the walk-in clinic and was negative. Related Data Previous Rx's Medication Instructions Recorded ciprofloxacin HCl 500 mg tablet 500 mg PO Q12H #20 tabs 04/17/18 (Cipro) metronidazole 500 mg tablet 500 mg PO TID #30 tabs 04/17/18 ondansetron 4 mg disintegrating 4 mg PO TID-QID PRN nausea and 04/17/18 tablet vomiting #30 tabs oxycodone-acetaminophen 5 mg-325 1 tab PO Q4-6H PRN pain #14 tabs 04/17/18 mg tablet (Percocet) cyclobenzaprine 10 mg tablet 10 mg PO TID PRN muscle spasm 3 11/23/23 days #10 tabs Allergies Allergy/AdvReac Type Severity Reaction Status Date / Time shellfish derived Allergy Severe itchy, Verified 11/23/23 09:55 hives Review of Systems <Braxton Hobbs PA-C - Last Filed: 11/23/23 12:32> Constitutional Constitutional: Denies chills, Denies fatigue, Denies fever(s), Denies frequent falls, Denies lethargy and Denies weakness Eyes Eyes: Denies change in vision, Denies eye discharge, Denies irritation and Denies loss of vision ENT Ears, Nose, Mouth, and Throat: Denies change in voice, Denies dizziness, Denies neck pain, Denies sore throat and Denies throat swelling Cardiovascular Cardiovascular: Denies chest pain, Denies irregular heart rhythm, Denies lightheadedness, Denies palpitations, Denies dyspnea, Denies dyspnea on exertion and Denies orthopnea Respiratory Respiratory: Denies cough, Denies dyspnea, Denies dyspnea on exertion and Denies wheezing Gastrointestinal Gastrointestinal: Denies abdominal pain, Denies change in bowel habits, Denies diarrhea, Denies nausea and Denies vomiting Musculoskeletal Musculoskeletal: Denies neck pain and Denies numbness Integumentary/Breasts Skin/Breast: Denies pruritus, Denies erythema, Denies rash and Denies wounds Neurologic Neurologic: Denies behavioral changes, Denies confusion, Denies dizziness, Denies frequent falls, Denies loss of vision, Denies numbness and Denies weakness Psychiatric Psychiatric: Denies anxiety, Denies behavioral changes, Denies confusion, Denies depression, Denies homicidal ideation and Denies suicidal ideation Endocrine Endocrine: Denies fatigue, Denies flushing and Denies palpitations Hematologic/Lymphatic Hematologic/Lymphatic: Denies easy bruising Allergic/Immunologic Allergic/Immunologic: Denies urticaria, Denies throat swelling and Denies wheezing Patient History <Braxton Hobbs PA-C - Last Filed: 11/23/23 12:32> Social History Smoking Status: Former smoker Smoking Status: Former smoker alcohol intake frequency: holidays/special occasions only Substance Use Type: does not use Exam <Braxton Hobbs PA-C - Last Filed: 11/23/23 12:32> Narrative Exam Narrative: Const General:?cooperative, healthy appearing and comfortable HENWY Head:?normal to inspection Ears:?hearing grossly normal bilaterally; tympani normal bilaterally; ear canals normal bilaterally; no mastoid tenderness. Nose:?external nose normal Face and sinus:?normal facial exam and sinuses nontender Mouth:?oral mucosae normal Throat:?posterior oropharynx normal Eyes General:?appearance normal, both eyes and all related structures Neck Neck:?normal visual inspection and no lymphadenopathy noted; there is some tenderness to palpation posterior to the mastoid on the left side and very localized. No swelling, masses palpated. Resp Effort & Inspection:?normal respiratory effort Auscultation:?clear to auscultation bilaterally Cardio Rate:?regular rate Rhythm:?regular rhythm Neuro General:?patient alert, patient awake and patient oriented x3 Initial Vital Signs Initial Vital Signs: Vital Signs Temperature 97.3 F L 11/23/23 09:51 Pulse Rate 701 H 11/23/23 09:51 Respiratory Rate 18 11/23/23 09:51 Blood Pressure 149/87 H 11/23/23 09:51 Pulse Oximetry 98 11/23/23 09:51 Oxygen Delivery Method Room Air 11/23/23 09:51 <Delbert Fofana DO - Last Filed: 11/24/23 10:31> Initial Vital Signs Initial Vital Signs: Vital Signs Temperature 97.3 F L 11/23/23 09:51 Pulse Rate 701 H 11/23/23 09:51 Respiratory Rate 18 11/23/23 09:51 Blood Pressure 149/87 H 11/23/23 09:51 Pulse Oximetry 98 11/23/23 09:51 Oxygen Delivery Method Room Air 11/23/23 09:51 Course <Braxton Hobbs PA-C - Last Filed: 11/23/23 12:32> Orders Ordered: Discontinued Medications Acetaminophen (Acetaminophen 325 Mg Tablet) 975 mg PO NOW ONE Stop: 11/23/23 11:34 Last Admin: 11/23/23 11:40 Dose: 975 mg Documented By: MARIBEL Cyclobenzaprine HCl (Cyclobenzaprine 10 Mg Tablet) 10 mg PO NOW ONE Stop: 11/23/23 11:34 Last Admin: 11/23/23 11:40 Dose: 10 mg Documented By: MARIBEL Ketorolac Tromethamine (Ketorolac 30 Mg/Ml Vial) 30 mg IM NOW ONE Stop: 11/23/23 11:34 Last Admin: 11/23/23 11:40 Dose: 30 mg Documented By: MARIBEL Vital Signs Vital signs: Vital Signs - 8 hr 11/23/23 09:51 Temperature 97.3 F L Pulse Rate 701 H Respiratory Rate 18 Blood Pressure 149/87 H Pulse Oximetry 98 Oxygen Delivery Method Room Air <Delbert Fofana DO - Last Filed: 11/24/23 10:31> Orders Ordered: Discontinued Medications Acetaminophen (Acetaminophen 325 Mg Tablet) 975 mg PO NOW ONE Stop: 11/23/23 11:34 Last Admin: 11/23/23 11:40 Dose: 975 mg Documented By: MARIBEL Cyclobenzaprine HCl (Cyclobenzaprine 10 Mg Tablet) 10 mg PO NOW ONE Stop: 11/23/23 11:34 Last Admin: 11/23/23 11:40 Dose: 10 mg Documented By: MARIBEL Ketorolac Tromethamine (Ketorolac 30 Mg/Ml Vial) 30 mg IM NOW ONE Stop: 11/23/23 11:34 Last Admin: 11/23/23 11:40 Dose: 30 mg Documented By: MARIBEL Vital Signs Vital signs: Vital Signs - 8 hr 11/23/23 09:51 Temperature 97.3 F L Pulse Rate 701 H Respiratory Rate 18 Blood Pressure 149/87 H Pulse Oximetry 98 Oxygen Delivery Method Room Air Medical Decision Making <Braxton Hobbs PA-C - Last Filed: 11/23/23 12:32> [facility] Narrative Medical decision making narrative: 43-year-old female presents to the ED with 7 days of left-sided headache and ear pain. Physical exam is reassuring for bilaterally in normal tympani and external ear canals. No mastoid tenderness. Patient is tender 2-3 inches posterior to the mastoid, no erythema, masses or lymphadenopathy, and is most consistent with a musculoskeletal etiology versus referred pain from migraines. Will if patient ketorolac, Tylenol, Flexeril and reassess. Patient's symptoms improved with medications. Prescribed Flexeril. Also recommend Tylenol, ibuprofen. Recommend follow-up with PCP in 3-5 days. ED return precautions discussed with patient. Patient verbalized understanding. Medical records reviewed: Yes <Delbert Fofana DO - Last Filed: 11/24/23 10:31> [facility] Narrative Medical decision making narrative: 43-year-old female presents to the ED with 7 days of left-sided headache and ear pain. Physical exam is reassuring for bilaterally in normal tympani and external ear canals. No mastoid tenderness. Patient is tender 2-3 inches posterior to the mastoid, no erythema, masses or lymphadenopathy, and is most consistent with a musculoskeletal etiology versus referred pain from migraines. Will if patient ketorolac, Tylenol, Flexeril and reassess. Patient's symptoms improved with medications. Prescribed Flexeril. Also recommend Tylenol, ibuprofen. Recommend follow-up with PCP in 3-5 days. ED return precautions discussed with patient. Patient verbalized understanding. Medical records reviewed: Yes Dr. Fofana: I was immediately available in the department for consultation. Documentation has been reviewed. I agree with assessment and plan. Discharge Plan Departure Patient Disposition: Home Clinical Impression: Neck pain Instructions: DI for Neck Pain Activity Restrictions/Additional Instructions: You were evaluated in the ED today for left-sided neck pain. You were given an injection of Toradol, a dose of Tylenol and a muscle relaxant. Your symptoms improved with the medications. You have been prescribed a muscle relaxant for continued use. Please be aware that this medication can make you sleepy, therefore to not use when driving or operating machinery. You may also take 600 mg of ibuprofen every 8 hours with food. You may also use 1000 mg of Tylenol every 8 hours. Please follow-up with your PCP in 3-5 days. Return to the ED if you have worsening symptoms, numbness, tingling, weakness. Prescriptions: New cyclobenzaprine 10 mg tablet 10 mg PO TID PRN (Reason: muscle spasm) 3 Days Qty: 10 0RF No Action ciprofloxacin HCl [Cipro] 500 mg tablet 500 mg PO Q12H Qty: 20 0RF metronidazole 500 mg tablet 500 mg PO TID Qty: 30 0RF ondansetron 4 mg tablet,disintegrating 4 mg PO TID-QID PRN (Reason: nausea and vomiting) Qty: 30 0RF oxycodone-acetaminophen [Percocet] 5-325 mg tablet 1 tab PO Q4-6H PRN (Reason: pain) Qty: 14 0RF Referrals: Charlie Hills MD [Primary Care Provider] - Stand Alone Forms: Patient Portal/API, Work Release Note
[2023-11-23] MEDS: KETOROLAC 30 MG/ML VIAL IM (11:40)
[2023-11-23] MEDS: CYCLOBENZAPRINE 10 MG TABLET PO (11:40)
[2023-11-23] MEDS: ACETAMINOPHEN 325 MG TABLET 975 MG PO (11:40)
[2023-11-23 12:31] VITALS: BP 137/81; PULSE 81; RESP 20; TEMP 37.1; O2SAT 100
== END 2023-11-23 12:33 | disposition home or self-care (01) ==
PROVIDERS: Emergency Provider Student in an Organized Health Care Education/Training Program; PCP Family Medicine
DX: M54.2 Cervicalgia (principal); R51.9 Headache, unspecified
CPT/HCPCS: 96372; 99283; J1885

== ENCOUNTER 2024-06-27 13:30 | Emergency (ER) | payer OTHER, SELFPAY ==
[2024-06-27 13:58] VITALS: BP 131/70; PULSE 101; RESP 16; TEMP 37.3; O2SAT 99; BMI 30.2
[2024-06-27] MEDS: ONDANSETRON 4 MG ODT SL (14:09)
[2024-06-27 15:11] LABS: Ictotest Urine Negative (Negative)
[2024-06-27 15:17] LABS: Mean Corpuscular HGB Conc 31.7 % (30-36); Mean Corpuscular Hemoglobin 20.3 PG (26-34); Platelet Count 367 X10^3/uL (150-400); Red Blood Cell Count 5.95 X10^6/uL (4.0-5.2); Red Cell Distribution Width 15.8 % (11.6-14.8); White Blood Cell Count 13.2 X10^3/uL (4.5-11.0)
[2024-06-27 15:17] LABS: Bacteria Urine Many (>30); Culture Indicated Urine Specimen Cultured; Hyaline Casts Urine 0-1/LPF; RBC Urine >100/HPF (0-5/HPF); Squamous Epithelial Cell Urine 1-5 /HPF (0-5/HPF); Urine Volume 10mL (spun); WBC Urine 1-5/HPF (0-5/HPF)
[2024-06-27] MEDS: EPINEPHrine 1 MG/ML 0.3 MG IM (15:17)
[2024-06-27] MEDS: methylPREDNISolone 125 MG/2 ML VIAL IV (15:18)
[2024-06-27] MEDS: diphenhydrAMINE 50 MG/ML VIAL 25 MG IV (15:18)
[2024-06-27] MEDS: FAMOTIDINE 20 MG/2 ML VIAL 40 MG IV (15:20)
[2024-06-27] MEDS: SODIUM CHLORIDE 0.9% 1,000 ML 1000 ML IV (15:20)
[2024-06-27 15:24] LABS: Add Manual Diff / Slide Review YES
[2024-06-27 15:27] VITALS: BP 104/60; PULSE 116; RESP 20; O2SAT 96
[2024-06-27 15:31] LABS: Alanine Aminotransferase 67 IU/L (<35); Albumin 4.4 g/dL (3.5-5.0); Albumin Globulin Ratio 1.4 (1.0-2.8); Alkaline Phosphatase 71 U/L (38-126); Aspartate Aminotransferase 53 IU/L (14-36); Bilirubin Total 0.4 mg/dL (0.2-1.3); Blood Urea Nitrogen 11 mg/dL (7-17); Calcium 8.7 mg/dL (8.4-10.2); Carbon Dioxide 19 mmol/L (22-32); Chloride 102 mmol/L (98-107); Estimated Glomerular Filt Rate > 60 mL/min (>60); Globulin 3.2 g/dL (1.7-4.1); Glucose 244 mg/dL (70-99); HEMOLYSIS < 15 (0-50); Lipase 78 U/L (23-300); Potassium 3.7 mmol/L (3.4-5.1); Sodium 135 mmol/L (137-145); Total Protein 7.6 g/dL (6.3-8.2)
--- NOTE | 2024-06-27 15:31 | PC.NURSE ---
This RN got patient from waiting room and noted that patient was scratching her arms aggressively. Upon getting to the room patient took off jacket and had hives bilaterally on shoulders through forearms. Provider immediately in room to assess the patient and verbally ordered allergic reaction kit. This RN immediately went to [facility] and overrode allergic reaction kit and returned to the room and administered ordered doses with confirmation of dosing of epi prior to administration with physician retail assistant store manager. 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 Provider educated patient on dangers in continuing the consumption of known allergen. This RN placed patient on mobile vitals machine for monitoring. Informed charge of patent.
[2024-06-27 15:36] LABS: Hypochromasia 1+; Microcytosis 2+; Neutrophils Absolute Manual 10824 /uL (3000-5900); Total Cells Counted 100
[2024-06-27 15:41] VITALS: BP 113/86; PULSE 96; RESP 18; O2SAT 96
--- NOTE | 2024-06-27 16:23 | ED_ITS ---
HPI - Nausea/Vomiting/Diarrhea <Braxton Hobbs PA-C - Last Filed: 06/28/24 12:01> General Chief complaint: Nausea/Vomiting/Diarrhea Stated complaint: abd px, vomiting, diarrhea Time Seen by Provider: 06/27/24 14:49 Source: patient Mode of arrival: Ambulatory History of Present Illness HPI Narrative: 43-year-old female with past medical history shellfish allergy presents to the ED with 1 day of all-over hives, itching, nausea, vomiting, diarrhea. Patient states that she ate galen with shrimp yesterday night, her symptoms started earlier this morning. Patient endorses a known allergy to shellfish. Patient states that her reactions are usually itching. Patient also endorses that when she was younger, she had anaphylactic reactions including wheezing, trouble breathing. Patient states that she has continued to eat shellfish since she thought that the hives were acceptable and tolerable. No other known allergies. Patient does have a history of diverticulitis. Patient denies bloody diarrhea today. No chest pain, trouble breathing, wheezing. No tongue swelling, throat swelling. Related Data Previous Rx's Medication Instructions Recorded epinephrine 0.3 mg/0.3 mL 0.3 mg (0.3 mL) IM Q5-15M PRN 06/27/24 injection, auto-injector (EpiPen anaphylaxis #2 ea 2-Yefri) sulfamethoxazole 800 1 tab PO BID #10 tabs 07/02/24 mg-trimethoprim 160 mg tablet (Bactrim DS) Allergies Allergy/AdvReac Type Severity Reaction Status Date / Time shellfish derived Allergy Severe itchy, Verified 11/23/23 09:55 hives Review of Systems <Braxton Hobbs PA-C - Last Filed: 06/28/24 12:01> Constitutional Constitutional: Denies chills, Denies fatigue, Denies fever(s), Denies frequent falls, Denies lethargy and Denies weakness Eyes Eyes: Denies change in vision, Denies eye discharge, Denies irritation and Denies loss of vision ENT Ears, Nose, Mouth, and Throat: Denies change in voice, Denies dizziness, Denies neck pain, Denies sore throat and Denies throat swelling Cardiovascular Cardiovascular: Denies chest pain, Denies irregular heart rhythm, Denies lightheadedness, Denies palpitations, Denies dyspnea, Denies dyspnea on exertion and Denies orthopnea Respiratory Respiratory: Denies cough, Denies dyspnea, Denies dyspnea on exertion and Denies wheezing Gastrointestinal Gastrointestinal: Reports abdominal pain, Denies change in bowel habits, Reports diarrhea, Reports nausea and Reports vomiting Musculoskeletal Musculoskeletal: Denies neck pain and Denies numbness Integumentary/Breasts Skin/Breast: Reports pruritus, Denies erythema, Reports rash and Denies wounds Neurologic Neurologic: Denies behavioral changes, Denies confusion, Denies dizziness, Denies frequent falls, Denies loss of vision, Denies numbness and Denies weakness Psychiatric Psychiatric: Denies anxiety, Denies behavioral changes, Denies confusion, Denies depression, Denies homicidal ideation and Denies suicidal ideation Endocrine Endocrine: Denies fatigue, Denies flushing and Denies palpitations Hematologic/Lymphatic Hematologic/Lymphatic: Denies easy bruising Allergic/Immunologic Allergic/Immunologic: Denies urticaria, Denies throat swelling and Denies wheezing Patient History <Braxton Hobbs PA-C - Last Filed: 06/28/24 12:01> Social History Smoking Status: Former smoker Smoking Status: Former smoker alcohol intake frequency: holidays/special occasions only Exam <Braxton Hobbs PA-C - Last Filed: 06/28/24 12:01> Narrative Exam Narrative: Const General:?cooperative, healthy appearing and comfortable [facility] Head:?normal to inspection Ears:?hearing grossly normal bilaterally Nose:?external nose normal Face and sinus:?normal facial exam and sinuses nontender Mouth:?oral mucosae normal; no angioedema Throat:?posterior oropharynx normal; airway is patent; no angioedema Eyes General:?appearance normal, both eyes and all related structures Neck Neck:?normal visual inspection and no lymphadenopathy noted Resp Effort & Inspection:?normal respiratory effort Auscultation:?clear to auscultation bilaterally Cardio Rate:?regular rate Rhythm:?regular rhythm GI Abdomen is soft, nondistended, nontender to palpation. Integumentary All-over, generalized hives. Patient is seen scratching due to itchiness. Neuro General:?patient alert, patient awake and patient oriented x3 Initial Vital Signs Initial Vital Signs: Vital Signs Temperature 99.2 F 06/27/24 13:58 Pulse Rate 101 H 06/27/24 13:58 Respiratory Rate 16 06/27/24 13:58 Blood Pressure 131/70 06/27/24 13:58 Pulse Oximetry 99 06/27/24 13:58 Oxygen Delivery Method Room Air 06/27/24 13:58 <Jany Contreras DO - Last Filed: 07/01/24 11:01> Initial Vital Signs Initial Vital Signs: Vital Signs Temperature 99.2 F 06/27/24 13:58 Pulse Rate 101 H 06/27/24 13:58 Respiratory Rate 16 06/27/24 13:58 Blood Pressure 131/70 06/27/24 13:58 Pulse Oximetry 99 06/27/24 13:58 Oxygen Delivery Method Room Air 06/27/24 13:58 <Alley Burris DO - Last Filed: 07/03/24 09:06> Initial Vital Signs Initial Vital Signs: Vital Signs Temperature 99.2 F 06/27/24 13:58 Pulse Rate 101 H 06/27/24 13:58 Respiratory Rate 16 06/27/24 13:58 Blood Pressure 131/70 06/27/24 13:58 Pulse Oximetry 99 06/27/24 13:58 Oxygen Delivery Method Room Air 06/27/24 13:58 Course <Braxton Hobbs PA-C - Last Filed: 06/28/24 12:01> Orders Ordered: Discontinued Medications Diphenhydramine HCl (Diphenhydramine 50 Mg/Ml Vial) 25 mg IV NOW ONE Stop: 06/27/24 15:11 Last Admin: 06/27/24 15:18 Dose: 25 mg Documented By: RB Epinephrine HCl (Epinephrine 1 Mg/Ml) 0.3 mg IM NOW ONE Stop: 06/27/24 15:11 Last Admin: 06/27/24 15:17 Dose: 0.3 mg Documented By: RB Famotidine (Famotidine 20 Mg/2 Ml Vial) 40 mg IV NOW MILVIA Last Admin: 06/27/24 15:20 Dose: 40 mg Documented By: RB Sodium Chloride (Normal Saline 0.9%) 1,000 mls @ 1,000 mls/hr IV BOLUS ONE Stop: 06/27/24 16:12 Last Infusion: 06/27/24 16:28 Dose: Infused Documented By: Admin: 06/27/24 15:20 Dose: 1,000 mls/hr Documented By: RB Methylprednisolone (Methylprednisolone 125 Mg/2 Ml Vial) 125 mg IV NOW ONE Stop: 06/27/24 15:11 Last Admin: 06/27/24 15:18 Dose: 125 mg Documented By: RB Ondansetron HCl (Ondansetron 4 Mg/2 Ml Inj) 4 mg IV NOW PRN PRN Reason: Nausea And Vomiting Ondansetron HCl (Ondansetron 4 Mg Odt) 4 mg SL NOW PRN PRN Reason: Nausea And Vomiting Last Admin: 06/27/24 14:09 Dose: 4 mg Documented By: SB Vital Signs Vital signs: Vital Signs - 8 hr 06/27/24 13:58 06/27/24 15:27 06/27/24 15:41 Temperature 99.2 F Pulse Rate 101 H 116 H 96 H Respiratory Rate 16 20 18 Blood Pressure 131/70 104/60 113/86 Pulse Oximetry 99 96 96 Oxygen Delivery Method Room Air Room Air Room Air 06/27/24 16:24 Temperature Pulse Rate 94 H Respiratory Rate 20 Blood Pressure 107/58 L Pulse Oximetry 96 Oxygen Delivery Method Room Air <Jany Contreras, - Last Filed: 07/01/24 11:01> Orders Ordered: Discontinued Medications Diphenhydramine HCl (Diphenhydramine 50 Mg/Ml Vial) 25 mg IV NOW ONE Stop: 06/27/24 15:11 Last Admin: 06/27/24 15:18 Dose: 25 mg Documented By: RB Epinephrine HCl (Epinephrine 1 Mg/Ml) 0.3 mg IM NOW ONE Stop: 06/27/24 15:11 Last Admin: 06/27/24 15:17 Dose: 0.3 mg Documented By: RB Famotidine (Famotidine 20 Mg/2 Ml Vial) 40 mg IV NOW MILVIA Last Admin: 06/27/24 15:20 Dose: 40 mg Documented By: RB Sodium Chloride (Normal Saline 0.9%) 1,000 mls @ 1,000 mls/hr IV BOLUS ONE Stop: 06/27/24 16:12 Last Infusion: 06/27/24 16:28 Dose: Infused Documented By: Admin: 06/27/24 15:20 Dose: 1,000 mls/hr Documented By: RB Methylprednisolone (Methylprednisolone 125 Mg/2 Ml Vial) 125 mg IV NOW ONE Stop: 06/27/24 15:11 Last Admin: 06/27/24 15:18 Dose: 125 mg Documented By: RB Ondansetron HCl (Ondansetron 4 Mg/2 Ml Inj) 4 mg IV NOW PRN PRN Reason: Nausea And Vomiting Ondansetron HCl (Ondansetron 4 Mg Odt) 4 mg SL NOW PRN PRN Reason: Nausea And Vomiting Last Admin: 06/27/24 14:09 Dose: 4 mg Documented By: SB Vital Signs Vital signs: Vital Signs - 8 hr 06/27/24 13:58 06/27/24 15:27 06/27/24 15:41 Temperature 99.2 F Pulse Rate 101 H 116 H 96 H Respiratory Rate 16 20 18 Blood Pressure 131/70 104/60 113/86 Pulse Oximetry 99 96 96 Oxygen Delivery Method Room Air Room Air Room Air 06/27/24 16:24 Temperature Pulse Rate 94 H Respiratory Rate 20 Blood Pressure 107/58 L Pulse Oximetry 96 Oxygen Delivery Method Room Air <Alley Burris DO - Last Filed: 07/03/24 09:06> Orders Ordered: Discontinued Medications Diphenhydramine HCl (Diphenhydramine 50 Mg/Ml Vial) 25 mg IV NOW ONE Stop: 06/27/24 15:11 Last Admin: 06/27/24 15:18 Dose: 25 mg Documented By: RB Epinephrine HCl (Epinephrine 1 Mg/Ml) 0.3 mg IM NOW ONE Stop: 06/27/24 15:11 Last Admin: 06/27/24 15:17 Dose: 0.3 mg Documented By: RB Famotidine (Famotidine 20 Mg/2 Ml Vial) 40 mg IV NOW MILVIA Last Admin: 06/27/24 15:20 Dose: 40 mg Documented By: RB Sodium Chloride (Normal Saline 0.9%) 1,000 mls @ 1,000 mls/hr IV BOLUS ONE Stop: 06/27/24 16:12 Last Infusion: 06/27/24 16:28 Dose: Infused Documented By: Admin: 06/27/24 15:20 Dose: 1,000 mls/hr Documented By: RB Methylprednisolone (Methylprednisolone 125 Mg/2 Ml Vial) 125 mg IV NOW ONE Stop: 06/27/24 15:11 Last Admin: 06/27/24 15:18 Dose: 125 mg Documented By: RB Ondansetron HCl (Ondansetron 4 Mg/2 Ml Inj) 4 mg IV NOW PRN PRN Reason: Nausea And Vomiting Ondansetron HCl (Ondansetron 4 Mg Odt) 4 mg SL NOW PRN PRN Reason: Nausea And Vomiting Last Admin: 06/27/24 14:09 Dose: 4 mg Documented By: SAHIL Vital Signs Vital signs: Vital Signs - 8 hr 06/27/24 13:58 06/27/24 15:27 06/27/24 15:41 Temperature 99.2 F Pulse Rate 101 H 116 H 96 H Respiratory Rate 16 20 18 Blood Pressure 131/70 104/60 113/86 Pulse Oximetry 99 96 96 Oxygen Delivery Method Room Air Room Air Room Air 06/27/24 16:24 Temperature Pulse Rate 94 H Respiratory Rate 20 Blood Pressure 107/58 L Pulse Oximetry 96 Oxygen Delivery Method Room Air MDM - Nausea/Vomiting/Diarrhea <Braxton Hobbs PA-C - Last Filed: 06/28/24 12:01> Lab Data 06/27/24 15:00 06/27/24 15:00 Labs: Lab Results 06/27/24 06/27/24 Range/Units 14:51 15:00 WBC 13.2 H (4.5-11.0) X10^3/uL RBC 5.95 H (4.0-5.2) X10^6/uL Hgb 12.0 (12.0-16.0) g/dL Hct 38.0 (36-46) % MCV 64.0 L (80-100) fL MCH 20.3 L (26-34) PG MCHC 31.7 (30-36) % RDW 15.8 H (11.6-14.8) % Plt Count 367 (150-400) X10^3/uL Neut % (Auto) Not Reportable Lymph % (Auto) Not Reportable Rice % (Auto) Not Reportable Eos % (Auto) Not Reportable Baso % (Auto) Not Reportable Lymph # (Auto) Not Reportable Rice # (Auto) Not Reportable Baso # (Auto) Not Reportable Total Counted 100 Seg Neutrophils % 82.0 H (38-70) % Lymphocytes % (Manual) 14.0 L (25-45) % Monocytes % (Manual) 3.0 (2-11) % Eosinophils % (Manual) 1.0 L (2-4) % Neutrophils # (Manual) 68291 H (3972-1566) /uL RBC Morphology See below Hypochromasia 1+ H Microcytosis 2+ H Sodium 135 L (137-145) mmol/L Potassium 3.7 (3.4-5.1) mmol/L Chloride 102 (98-107) mmol/L Carbon Dioxide 19 L (22-32) mmol/L BUN 11 (7-17) mg/dL Creatinine 0.44 L (0.52-1.04) mg/dL Estimated GFR > 60 (>60) mL/min BUN/Creatinine Ratio 25.0 H (6-22) Glucose 244 H (70-99) mg/dL Hemoglobin A1c 10.0 H (4.0-6.0) % Calcium 8.7 (8.4-10.2) mg/dL Total Bilirubin 0.4 (0.2-1.3) mg/dL AST 53 H (14-36) IU/L ALT 67 H (<35) IU/L Alkaline Phosphatase 71 (38-126) U/L Total Protein 7.6 (6.3-8.2) g/dL Albumin 4.4 (3.5-5.0) g/dL Globulin 3.2 (1.7-4.1) g/dL Albumin/Globulin Ratio 1.4 (1.0-2.8) Lipase 78 (23-300) U/L Ur Bilirubin Confirm Negative (Negative) Urine RBC >100/hpf H (0-5/HPF) Urine WBC 1-5/hpf (0-5/HPF) Ur Squamous Epith Cells 1-5 /hpf D (0-5/HPF) Urine Bacteria Many (>30) H (None) Hyaline Casts 0-1/lpf (None) Ur Culture Indicated? Specimen cultured Vol Urine Centrifuged 10ml (spun) Point of Care Testing Test Results Negative Urine Dip Bedside Urine Glucose 100 mg/dl Bedside Urine Bilirubin + 1 Bedside Urine Ketone ++ 40 Urine Specific [place] 1.030 Bedside Urine Occult Blood +++ Bedside Urine pH 6.0 Bedside Urine Protein ++ 100 Bedside Urine Urobilinogen - Negative Bedside Urine Nitrite + Positive Bedside Urine Leukocytes - Negative Esterase MDM Narrative Medical decision making narrative: 43-year-old female with past medical history shellfish allergy presents to the ED with 1 day of all-over hives, itching, nausea, vomiting, diarrhea. There is concern for an anaphylactic reaction to the shellfish versus diverticulitis versus other. Per criteria to, patient meets criteria for anaphylaxis. Patient is actively scratching and itchy. Four episodes of vomiting that were intractable until patient was given Zofran in the ED. patient treated for anaphylactic reaction with epinephrine, methylprednisone, Benadryl, Pepcid, IV fluids. Will continue to monitor prior to discharge. Patient responded well to medications. EpiPen 2 pack prescribed. Counseled patient with regards to anaphylactic reactions. Recommend strict precautions to avoid shellfish. ED return precautions were discussed with patient. Patient verbalized understanding. Medical records reviewed: Yes <Jany Contreras DO - Last Filed: 07/01/24 11:01> Lab Data Labs: Lab Results 06/27/24 06/27/24 Range/Units 14:51 15:00 WBC 13.2 H (4.5-11.0) X10^3/uL RBC 5.95 H (4.0-5.2) X10^6/uL Hgb 12.0 (12.0-16.0) g/dL Hct 38.0 (36-46) % MCV 64.0 L (80-100) fL MCH 20.3 L (26-34) PG MCHC 31.7 (30-36) % RDW 15.8 H (11.6-14.8) % Plt Count 367 (150-400) X10^3/uL Neut % (Auto) Not Reportable Lymph % (Auto) Not Reportable Rice % (Auto) Not Reportable Eos % (Auto) Not Reportable Baso % (Auto) Not Reportable Lymph # (Auto) Not Reportable Rice # (Auto) Not Reportable Baso # (Auto) Not Reportable Total Counted 100 Seg Neutrophils % 82.0 H (38-70) % Lymphocytes % (Manual) 14.0 L (25-45) % Monocytes % (Manual) 3.0 (2-11) % Eosinophils % (Manual) 1.0 L (2-4) % Neutrophils # (Manual) 62243 H (6039-6019) /uL RBC Morphology See below Hypochromasia 1+ H Microcytosis 2+ H Sodium 135 L (137-145) mmol/L Potassium 3.7 (3.4-5.1) mmol/L Chloride 102 (98-107) mmol/L Carbon Dioxide 19 L (22-32) mmol/L BUN 11 (7-17) mg/dL Creatinine 0.44 L (0.52-1.04) mg/dL Estimated GFR > 60 (>60) mL/min BUN/Creatinine Ratio 25.0 H (6-22) Glucose 244 H (70-99) mg/dL Hemoglobin A1c 10.0 H (4.0-6.0) % Calcium 8.7 (8.4-10.2) mg/dL Total Bilirubin 0.4 (0.2-1.3) mg/dL AST 53 H (14-36) IU/L ALT 67 H (<35) IU/L Alkaline Phosphatase 71 (38-126) U/L Total Protein 7.6 (6.3-8.2) g/dL Albumin 4.4 (3.5-5.0) g/dL Globulin 3.2 (1.7-4.1) g/dL Albumin/Globulin Ratio 1.4 (1.0-2.8) Lipase 78 (23-300) U/L Ur Bilirubin Confirm Negative (Negative) Urine RBC >100/hpf H (0-5/HPF) Urine WBC 1-5/hpf (0-5/HPF) Ur Squamous Epith Cells 1-5 /hpf D (0-5/HPF) Urine Bacteria Many (>30) H (None) Hyaline Casts 0-1/lpf (None) Ur Culture Indicated? Specimen cultured Vol Urine Centrifuged 10ml (spun) Point of Care Testing Test Results Negative Urine Dip Bedside Urine Glucose 100 mg/dl Bedside Urine Bilirubin + 1 Bedside Urine Ketone ++ 40 Urine Specific [place] 1.030 Bedside Urine Occult Blood +++ Bedside Urine pH 6.0 Bedside Urine Protein ++ 100 Bedside Urine Urobilinogen - Negative Bedside Urine Nitrite + Positive Bedside Urine Leukocytes - Negative Esterase MDM Narrative Medical decision making narrative: 43-year-old female with past medical history shellfish allergy presents to the ED with 1 day of all-over hives, itching, nausea, vomiting, diarrhea. There is concern for an anaphylactic reaction to the shellfish versus diverticulitis versus other. Per criteria to, patient meets criteria for anaphylaxis. Patient is actively scratching and itchy. Four episodes of vomiting that were intractable until patient was given Zofran in the ED. patient treated for anaphylactic reaction with epinephrine, methylprednisone, Benadryl, Pepcid, IV fluids. Will continue to monitor prior to discharge. Patient responded well to medications. EpiPen 2 pack prescribed. Counseled patient with regards to anaphylactic reactions. Recommend strict precautions to avoid shellfish. ED return precautions were discussed with patient. Patient verbalized understanding. Medical records reviewed: Yes urine culture positive for E coli greater than 100,000, does have some resistance but does not appear to be sensitive to Bactrim. No reported allergies to Bactrim per patient she was here for anaphylaxis to shellfish. Nursing to reach out to patient we will call in antibiotic, Bactrim ds 1 tablet p.o. b.i.d. x5 days to patient's pharmacy of choice <Alley Burris, - Last Filed: 07/03/24 09:06> Lab Data Labs: Lab Results 06/27/24 06/27/24 Range/Units 14:51 15:00 WBC 13.2 H (4.5-11.0) X10^3/uL RBC 5.95 H (4.0-5.2) X10^6/uL Hgb 12.0 (12.0-16.0) g/dL Hct 38.0 (36-46) % MCV 64.0 L (80-100) fL MCH 20.3 L (26-34) PG MCHC 31.7 (30-36) % RDW 15.8 H (11.6-14.8) % Plt Count 367 (150-400) X10^3/uL Neut % (Auto) Not Reportable Lymph % (Auto) Not Reportable Rice % (Auto) Not Reportable Eos % (Auto) Not Reportable Baso % (Auto) Not Reportable Lymph # (Auto) Not Reportable Rice # (Auto) Not Reportable Baso # (Auto) Not Reportable Total Counted 100 Seg Neutrophils % 82.0 H (38-70) % Lymphocytes % (Manual) 14.0 L (25-45) % Monocytes % (Manual) 3.0 (2-11) % Eosinophils % (Manual) 1.0 L (2-4) % Neutrophils # (Manual) 68809 H (6756-2021) /uL RBC Morphology See below Hypochromasia 1+ H Microcytosis 2+ H Sodium 135 L (137-145) mmol/L Potassium 3.7 (3.4-5.1) mmol/L Chloride 102 (98-107) mmol/L Carbon Dioxide 19 L (22-32) mmol/L BUN 11 (7-17) mg/dL Creatinine 0.44 L (0.52-1.04) mg/dL Estimated GFR > 60 (>60) mL/min BUN/Creatinine Ratio 25.0 H (6-22) Glucose 244 H (70-99) mg/dL Hemoglobin A1c 10.0 H (4.0-6.0) % Calcium 8.7 (8.4-10.2) mg/dL Total Bilirubin 0.4 (0.2-1.3) mg/dL AST 53 H (14-36) IU/L ALT 67 H (<35) IU/L Alkaline Phosphatase 71 (38-126) U/L Total Protein 7.6 (6.3-8.2) g/dL Albumin 4.4 (3.5-5.0) g/dL Globulin 3.2 (1.7-4.1) g/dL Albumin/Globulin Ratio 1.4 (1.0-2.8) Lipase 78 (23-300) U/L Ur Bilirubin Confirm Negative (Negative) Urine RBC >100/hpf H (0-5/HPF) Urine WBC 1-5/hpf (0-5/HPF) Ur Squamous Epith Cells 1-5 /hpf D (0-5/HPF) Urine Bacteria Many (>30) H (None) Hyaline Casts 0-1/lpf (None) Ur Culture Indicated? Specimen cultured Vol Urine Centrifuged 10ml (spun) Point of Care Testing Test Results Negative Urine Dip Bedside Urine Glucose 100 mg/dl Bedside Urine Bilirubin + 1 Bedside Urine Ketone ++ 40 Urine Specific [place] 1.030 Bedside Urine Occult Blood +++ Bedside Urine pH 6.0 Bedside Urine Protein ++ 100 Bedside Urine Urobilinogen - Negative Bedside Urine Nitrite + Positive Bedside Urine Leukocytes - Negative Esterase Discharge Plan Departure Patient Disposition: Home Clinical Impression: Anaphylaxis Qualifiers: Encounter type: initial encounter Qualified Code(s): T78.2XXA - Anaphylactic shock, unspecified, initial encounter Instructions: DI for Anaphylaxis Activity Restrictions/Additional Instructions: You were evaluated in the ED today for an allergic reaction. It appears that your allergic reaction was quite severe and it was an anaphylactic reaction. The itching, hives as well as the nausea, vomiting and diarrhea are from the allergic reaction. You were given a dose of epinephrine, steroids, Benadryl, Pepcid AC, IV fluids with good relief. You may continue taking Benadryl and Pepcid AC at home for the itching and hives. You have been prescribed 2 EpiPens, which you should keep on you at all times to use in the event of another anaphylactic reaction. Please refrain from consuming any shellfish. Please follow-up with an learning disabilities specialist as soon as possible for further evaluation and treatment. It was also noted today that you your blood sugar today was quite high at 244. We also ran a hemoglobin A1c on you which was also high at 10. The hemoglobin A1c is a marker for diabetes. He has follow-up with your PCP as soon as possible regarding this since you may need dietary modifications and medications to control the diabetes. Call 911 and return to the ED if you have a relapse of your allergic symptoms, you experience chest pain, throat tightening, lip swelling, trouble breathing. Prescriptions: New epinephrine [EpiPen 2-Yefri] 0.3 mg/0.3 mL auto-injector 0.3 mg IM Q5-15M PRN (Reason: anaphylaxis) Qty: 2 0RF Rx Instructions: do not exceed 3 doses per episode sulfamethoxazole-trimethoprim [Bactrim DS] 800-160 mg tablet 1 tab PO BID Qty: 10 0RF Referrals: Charlie Hills MD [Primary Care Provider] - Stand Alone Forms: Patient Portal/API/Survey, Work Release Note ED Sign-out <Alley Burris DO - Last Filed: 07/03/24 09:06> Cosign ED Attending Cosrayrayature Attestation: I was available for consultation.
[2024-06-27 16:24] VITALS: BP 107/58; PULSE 94; RESP 20; O2SAT 96
[2024-06-27 18:11] VITALS: BP 107/58; PULSE 85; RESP 16; TEMP 36.4; O2SAT 96
== END 2024-06-27 18:10 | disposition home or self-care (01) ==
PROVIDERS: Emergency Provider Student in an Organized Health Care Education/Training Program; PCP Family Medicine
DX: T78.2XXA Anaphylactic shock, unspecified, initial encounter (principal); R11.2 Nausea with vomiting, unspecified; R10.9 Unspecified abdominal pain; R19.7 Diarrhea, unspecified
CPT/HCPCS: 36415; 80053; 81003; 81015; 81025; 83036; 83690; 85007; 85025; 87077; 87086; 87186; 96361; 96372; 96374; 96375; 99284; J0171; J1200; J2919